=== PATIENT | male | born 1995 | race Caucasian/White ===

== ENCOUNTER 2017-01-28 09:35 | Emergency (ER) | payer OTHER ==
[2017-01-28] MEDS ORDERED: XYLOCAINE 2% INFILTRATI ONE (11:33)
[2017-01-28] MEDS ORDERED: BOOSTRIX IM ONE (11:33)
--- NOTE | 2017-01-28 11:35 | Emergency Department Report ---
ED Lower Extremity HPI - General Chief Complaint: Extremity Injury, Lower Stated Complaint: RT TOE INJURY Time Seen by Provider: 01/28/17 11:12 Source: patient Mode of arrival: Ambulatory Limitations: No Limitations - History of Present Illness Complaint: other (Right great toe ) Onset/Timin -: Sudden, days(s) Injury: Foot: Right Type of Injury: blunt Severity: moderate Severity scale (0 -10): 4 Improves With: nothing Worsens With: movement, palpation Context: direct blow Associated Symptoms: swelling, tingling, ambulatory, other (weight bearing ) - Related Data Previous Rx's Medication Instructions Recorded Last Taken Type Cephalexin [Keflex] 500 mg PO TID #30 capsule 01/28/17 Unknown Rx traMADol [Ultram 50 MG tab] 50 mg PO Q6HR PRN #15 tablet 01/28/17 Unknown Rx Allergies Allergy/AdvReac Type Severity Reaction Status Date / Time No Known Allergies Allergy Verified 01/28/17 10:12 ED Review of Systems ROS: Stated complaint: RT TOE INJURY Other details as noted in HPI Constitutional: denies: chills, fever Eyes: denies: eye pain, eye discharge, vision change ENT: denies: ear pain, throat pain Respiratory: denies: cough, shortness of breath, wheezing Cardiovascular: denies: chest pain, palpitations Endocrine: no symptoms reported Gastrointestinal: denies: abdominal pain, nausea, diarrhea Genitourinary: denies: urgency, dysuria Musculoskeletal: other (right great toe pain ) Skin: denies: rash, lesions Neurological: denies: headache, weakness, paresthesias Psychiatric: denies: anxiety, depression Hematological/Lymphatic: denies: easy bleeding, easy bruising ED Past Medical Hx - Past Medical History Previous Medical History?: No - Surgical History Past Surgical History?: Yes Additional Surgical History: L elbow - Social History Smoking Status: Current Every Day Smoker Substance Use Type: None - Medications Home Medications: Home Medications Medication Instructions Recorded Confirmed Last Taken Type Cephalexin [Keflex] 500 mg PO TID #30 capsule 01/28/17 Unknown Rx traMADol [Ultram 50 MG tab] 50 mg PO Q6HR PRN #15 tablet 01/28/17 Unknown Rx ED Physical Exam - General Limitations: No Limitations General appearance: alert, in no apparent distress - Head Head exam: Present: atraumatic, normocephalic - Eye Eye exam: Present: normal appearance - ENT ENT exam: Present: mucous membranes moist - Neck Neck exam: Present: normal inspection - Respiratory Respiratory exam: Present: normal lung sounds bilaterally. Absent: respiratory distress - Cardiovascular Cardiovascular Exam: Present: regular rate, normal rhythm. Absent: systolic murmur, diastolic murmur, rubs, gallop - GI/Abdominal GI/Abdominal exam: Present: soft, normal bowel sounds - Rectal Rectal exam: Present: deferred - Expanded Lower Extremity Exam Right Hip exam: Present: normal inspection Upper Leg exam: Present: normal inspection Knee exam: Present: normal inspection Lower Leg exam: Present: normal inspection Ankle exam: Present: normal inspection Foot/Toe exam: Present: tenderness, swelling, ecchymosis, erythema, subungual hematoma. Absent: deformity, crepidus, dislocation, amputation, puncture wound , foreign body, calcaneal tenderness, tenderness at base of 5th metatarsal, nail avulsion Neuro vascular tendon exam: Present: no vascular compromise. Absent: pulse deficit, abnormal cap refill, motor deficit, sensory deficit, tendon deficit, extremity cold to touch, pallor, abnormal 2-point discrimination, decreased fine /light touch, foot drop, peroneal nerve deficit, significant pain with passive ROM of distal joint Gait: Positive: observed and limited by pain - Back Exam Back exam: Present: normal inspection, full ROM. Absent: tenderness, CVA tenderness (R), CVA tenderness (L), muscle spasm, paraspinal tenderness, vertebral tenderness - Neurological Exam Neurological exam: Present: alert, oriented X3, CN II-XII intact, reflexes normal. Absent: motor sensory deficit - Psychiatric Psychiatric exam: Present: normal affect, normal mood - Skin Skin exam: Present: warm, dry, intact. Absent: rash, cyanosis, erythema, abrasion, ecchymosis ED Course Vital Signs 01/28/17 01/28/17 10:13 11:56 Temperature 99.0 F 98.5 F Pulse Rate 68 66 Respiratory 18 18 Rate Blood Pressure 118/76 Blood Pressure 124/80 [Right] O2 Sat by Pulse 100 99 Oximetry - I & D Right Dorsal Toe Site: right great toed subungual Hematoma Blade Size: 10 I & D Procedure: betadine prep Progress: pt with subungual hematoma right great toe , toe cleaned with betabdine solution , anethesia wiht 1% lidocaine, cautery pen drainage bloody output minimal allmount, 10 blade to nail bed toe irrigated with ns x 20 cc, nail bed blunt probed, pt advises pressure relieved to 0/10 , gauze dressing applied , pt given wound care instructions pt verabalized understanding of same. pt tolerated procedure with minimal distress. 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 pt ambulatory gait steady without gait disturbance at this time. Critical care attestation.: If time is entered above; I have spent that time in minutes in the direct care of this critically ill patient, excluding procedure time. ED Disposition Clinical Impression: Hematoma, subungual, great toe, right Qualifiers: Encounter type: initial encounter Qualified Code(s): S90.211A - Contusion of right great toe with damage to nail, initial encounter Sprain of foot, right Qualifiers: Encounter type: initial encounter Qualified Code(s): S93.601A - Unspecified sprain of right foot, initial encounter Disposition: DC-01 TO HOME OR SELFCARE Is pt being admited?: No Does the pt Need Aspirin: No Condition: Good Instructions: Subungual Hematoma (ED), Foot Sprain (ED) Additional Instructions: follow up with your [employer] doctor as directed by your company/ employer Prescriptions: Cephalexin [Keflex] 500 mg PO TID #30 capsule traMADol [Ultram 50 MG tab] 50 mg PO Q6HR PRN #15 tablet PRN Reason: Pain Referrals: PRIMARY CARE,MD [Primary Care Provider] - 3-5 Days Forms: Work/School Release Form(ED) Time of Disposition: 12:43
--- NOTE | 2017-01-28 11:38 | XRay Report ---
Right first toe: Injury/pain. There is some question concerning slight swelling of the soft tissues. There is no foreign body, laceration, fracture, or dislocation. The bones are well-mineralized and the joints are preserved. An AP view to include the entire foot is otherwise unremarkable. Impression: Probable soft tissue swelling.
--- NOTE | 2017-01-28 11:39 | XRay Report ---
Right foot 2 views: History: Injury to right foot. Findings: No articular abnormality. No fracture. No periosteal reaction or lytic lesion. Impression: Essentially negative right foot.
[2017-01-28] MEDS ORDERED: XYLOCAINE 1% MPF 5 mL INFILTRATI ONE (11:41)
[2017-01-28 11:57] VITALS: BP 124/80
== END 2017-01-28 12:49 | disposition home or self-care (01) ==
LOC: ED 09:35
DX: S93.601A Unspecified sprain of right foot, initial encounter (principal); S90.211A Contusion of right great toe with damage to nail, initial encounter; F17.200 Nicotine dependence, unspecified, uncomplicated; X58.XXXA Exposure to other specified factors, initial encounter; Y93.89 Activity, other specified; Y99.8 Other external cause status; Y92.89 Other specified places as the place of occurrence of the external cause
CPT/HCPCS: 90471; 90715

== ENCOUNTER 2019-03-03 11:06 | Emergency (ER) | payer SELFPAY ==
[2019-03-03 11:15] VITALS: BP 118/68
[2019-03-03 11:47] LABS: Hematocrit 49.1 % (35.5-45.6); Hemoglobin 16.8 gm/dl (11.8-15.2); Mean Corpuscular HGB Conc 34 % (32-34); Mean Corpuscular Volume 93 fl (84-94); Platelet Count 291 K/mm3 (140-440); Red Cell Distribution Width 13.2 % (13.2-15.2)
[2019-03-03 11:50] LABS: Bilirubin,Urine NEG (Negative); Blood,Urine NEG (Negative); Color,Urine Yellow (Yellow); Mucus,Urine FEW /HPF; Protein,Urine <15 mg/dL mg/dL (Negative); Urobilinogen,Urine < 2.0 mg/dL (<2.0)
[2019-03-03 12:09] LABS: Alanine Aminotransferase 14 units/L (7-56); Albumin 4.4 g/dL (3.9-5); BUN/Creatinine Ratio 8; Blood Urea Nitrogen 8 mg/dL (9-20); Calcium 9.2 mg/dL (8.4-10.2); Hemolysis Index 10
--- NOTE | 2019-03-03 12:26 | Emergency Department Report ---
ED Abdominal Pain HPI - General Chief Complaint: Abdominal Pain Stated Complaint: STOMACH PAIN/ABD PAIN Time Seen by Provider: 03/03/19 12:18 Source: patient Mode of arrival: Ambulatory Limitations: No Limitations - History of Present Illness Initial Comments: Radha is a young healthy 23-year-old male who presents with left lower quadrant suprapubic abdominal pain for the past 2 days. 2 days ago he woke up with stiffness pain pain is worse when he stretches. He does recall playing basketball the day before. Denies fever. Denies vomiting. Denies diarrhea. No pain in the genitals. Mild stiff pain. 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 MD Complaint: abdominal pain -: Gradual, days(s) (2) Location: LLQ, suprapubic Severity: moderate Quality: dull Worsens With: movement Associated Symptoms: denies other symptoms - Related Data Previous Rx's Medication Instructions Recorded Last Taken Type Cephalexin [Keflex] 500 mg PO TID #30 capsule 01/28/17 Unknown Rx traMADol [Ultram 50 MG tab] 50 mg PO Q6HR PRN #15 tablet 01/28/17 Unknown Rx Ibuprofen [Motrin 800 MG tab] 800 mg PO Q8HR PRN #10 tablet 03/03/19 Unknown Rx cephALEXin [Keflex] 500 mg PO QID 7 Days #28 capsule 03/03/19 Unknown Rx Allergies Allergy/AdvReac Type Severity Reaction Status Date / Time No Known Allergies Allergy Verified 01/28/17 10:12 ED Review of Systems ROS: Stated complaint: STOMACH PAIN/ABD PAIN Other details as noted in HPI Comment: All other systems reviewed and negative Constitutional: denies: fever, malaise Gastrointestinal: denies: nausea, vomiting, diarrhea ED Past Medical Hx - Past Medical History Previous Medical History?: No - Surgical History Past Surgical History?: Yes Additional Surgical History: R elbow sx 2014 - Social History Smoking Status: Never Smoker Substance Use Type: None - Medications Home Medications: Home Medications Medication Instructions Recorded Confirmed Last Taken Type Cephalexin [Keflex] 500 mg PO TID #30 capsule 01/28/17 Unknown Rx traMADol [Ultram 50 MG tab] 50 mg PO Q6HR PRN #15 tablet 01/28/17 Unknown Rx Ibuprofen [Motrin 800 MG tab] 800 mg PO Q8HR PRN #10 tablet 03/03/19 Unknown Rx cephALEXin [Keflex] 500 mg PO QID 7 Days #28 capsule 03/03/19 Unknown Rx ED Physical Exam - General Limitations: No Limitations General appearance: alert, in no apparent distress - Head Head exam: Present: atraumatic, normocephalic - Eye Eye exam: Present: normal appearance - ENT ENT exam: Present: mucous membranes moist - Neck Neck exam: Present: normal inspection, full ROM - Respiratory Respiratory exam: Present: normal lung sounds bilaterally. Absent: respiratory distress, wheezes, rales, rhonchi - Cardiovascular Cardiovascular Exam: Present: regular rate, normal rhythm. Absent: normal heart sounds, systolic murmur, diastolic murmur, rubs, gallop - GI/Abdominal GI/Abdominal exam: Present: soft, normal bowel sounds. Absent: distended, tenderness, guarding, rebound - Rectal Rectal exam: Present: deferred - Extremities Exam Extremities exam: Present: normal inspection - Back Exam Back exam: Present: normal inspection - Neurological Exam Neurological exam: Present: alert, oriented X3 - Psychiatric Psychiatric exam: Present: normal affect, normal mood - Skin Skin exam: Present: warm, dry, intact, normal color. Absent: rash ED Course Vital Signs 03/03/19 11:08 Temperature 97.9 F Pulse Rate 72 Respiratory 18 Rate Blood Pressure 118/68 O2 Sat by Pulse 97 Oximetry ED Medical Decision Making - Lab Data Result diagrams: 03/03/19 11:28 03/03/19 11:28 Laboratory Results - last 24 hr 03/03/19 03/03/19 03/03/19 11:28 11:28 Unknown WBC 5.8 RBC 5.30 H Hgb 16.8 H Hct 49.1 H MCV 93 MCH 32 MCHC 34 RDW 13.2 Plt Count 291 [place] % (Auto) Instrument Inspector Sodium 142 Potassium 4.1 Chloride 103.1 Carbon Dioxide 31 H Anion Gap 12 BUN 8 L Creatinine 1.0 Estimated GFR > 60 BUN/Creatinine Ratio 8 Glucose 98 Calcium 9.2 Total Bilirubin 0.30 AST 19 ALT 14 Alkaline Phosphatase 84 Total Protein 7.8 Albumin 4.4 Albumin/Globulin Ratio 1.3 Urine Color Yellow Urine Turbidity Slightly-cloudy Urine pH 6.0 Ur Specific Sabael 1.013 Urine Protein <15 mg/dl Urine Glucose (UA) Neg Urine Ketones Neg Urine Blood Neg Urine Nitrite Neg Urine Bilirubin Neg Urine Urobilinogen < 2.0 Ur Leukocyte Esterase Lg Urine WBC (Auto) 105.0 H Urine RBC (Auto) 5.0 Urine Mucus Few Urine Yeast (Budding) 3+ - Medical Decision Making No signs of peritonitis. There are signs of UTI. Prescribed cephalexin. Discharged home. Critical care attestation.: If time is entered above; I have spent that time in minutes in the direct care of this critically ill patient, excluding procedure time. ED Disposition Clinical Impression: Abdominal wall strain, UTI (urinary tract infection) Disposition: TO HOME OR SELFCARE Is pt being admited?: No Does the pt Need Aspirin: No Condition: Stable Instructions: Muscle Strain (ED), Urinary Tract Infection in Men (ED) Prescriptions: cephALEXin [Keflex] 500 mg PO QID 7 Days #28 capsule Ibuprofen [Motrin 800 MG tab] 800 mg PO Q8HR PRN #10 tablet PRN Reason: pain Referrals: ELISSA ALFARO MD [Primary Care Provider] - 3-5 Days
[2019-03-03 14:06] LABS: Band Neutrophils # (Manual) 0.1 K/mm3; Basophils % (Manual) 0 % (0.0-1.8); Total Cells Counted 100
[2019-03-03 14:07] LABS: Platelet Estimate Consistent w Auto; RBC Morphology Normal
== END 2019-03-03 12:35 | disposition home or self-care (01) ==
LOC: ED 11:06
DX: N39.0 Urinary tract infection, site not specified (principal)
CPT/HCPCS: 36415; 80053; 81001; 85007; 85025

== ENCOUNTER 2019-04-21 11:01 | Emergency (ER) | payer SELFPAY ==
[2019-04-21 11:11] VITALS: BP 114/71
--- NOTE | 2019-04-21 11:55 | Emergency Department Report ---
Chief Complaint: Dental/Oral Stated Complaint: TOOTHACHE/HEADACHE Time Seen by Provider: 04/21/19 11:54 - HPI History of Present Illness: Mr. Cervantes is a healthy 24-year-old male who has pain from an impacted wisdom tooth. He has been under the care of a dentist. Medical screening exam performed and completed. No evidence of acute emergent condition which needs further treatment or evaluation. - Exam Vital Signs: Vital Signs 04/21/19 11:08 Temperature 98.2 F Pulse Rate 64 Respiratory 16 Rate Blood Pressure 114/71 O2 Sat by Pulse 99 Oximetry MSE screening note: Focused history and physical exam performed. Due to findings the following was ordered: ED Disposition for MSE Clinical Impression: Pain, dental Disposition: Z-07 MED SCREENING EXAM-LEFT Is pt being admited?: No Does the pt Need Aspirin: No Condition: Stable
== END 2019-04-21 12:32 | disposition left against medical advice (07) ==
LOC: ED 11:01
DX: K08.89 Other specified disorders of teeth and supporting structures (principal); Z53.21 Procedure and treatment not carried out due to patient leaving prior to being seen by health care provider

== ENCOUNTER 2020-08-31 12:09 | Emergency (ER) | payer SELFPAY ==
[2020-08-31 12:18] VITALS: BP 116/68
[2020-08-31] MEDS ORDERED: LIDOCAINE-MPF (1%) 10 MG/1 ML VIAL 5 ML INFILTRATI ONE (14:11)
--- NOTE | 2020-08-31 14:14 | Emergency Department Report ---
ED Male HPI - General Chief complaint: Abdominal Pain Stated complaint: STOMACH PAIN Source: patient Mode of arrival: Ambulatory Limitations: No Limitations - History of Present Illness Initial comments: 25-year-old -[place] male presents to the emergency room with a 2 to 3- day history of a bump to his left pubis area that is painful. Patient also complains of penile discharge for 2 days. But not constant. He also has some dysuria. Denies any testicular pain. Does admit to having unprotected intercourse. No past medical history. Patient has a history of a right elbow surgery in 2014. Currently has no known drug allergies. Does not take any medications on a daily basis. Patient is up-to-date on all vaccines. MD Complaint: penile discharge, dysuria, groin pain Onset/Timin -: days(s) Location: right inguinal region Severity scale (0 -10): 8 Quality: sharp Consistency: constant Improves with: none Worsens with: movement discharge - Related Data Sexually active: Yes Previous Rx's Medication Instructions Recorded Last Taken Type cephALEXin [Keflex] 500 mg PO TID #30 capsule 01/28/17 Unknown Rx traMADoL [Ultram 50 MG tab] 50 mg PO Q6HR PRN #15 tablet 01/28/17 Unknown Rx Ibuprofen [Motrin 800 MG tab] 800 mg PO Q8HR PRN #10 tablet 03/03/19 Unknown Rx cephALEXin [Keflex] 500 mg PO QID 7 Days #28 capsule 03/03/19 Unknown Rx Azithromycin 1,000 mg PO ONCE #2 tablet 08/31/20 Unknown Rx Allergies Allergy/AdvReac Type Severity Reaction Status Date / Time No Known Allergies Allergy Verified 08/31/20 12:16 ED Review of Systems ROS: Stated complaint: STOMACH PAIN Other details as noted in HPI Comment: All other systems reviewed and negative ED Past Medical Hx - Past Medical History Previous Medical History?: No - Surgical History Additional Surgical History: R elbow sx 2015 - Social History Smoking Status: Current Every Day Smoker Substance Use Type: None - Medications Home Medications: Home Medications Medication Instructions Recorded Confirmed Last Taken Type cephALEXin [Keflex] 500 mg PO TID #30 capsule 01/28/17 Unknown Rx traMADoL [Ultram 50 MG tab] 50 mg PO Q6HR PRN #15 tablet 01/28/17 Unknown Rx Ibuprofen [Motrin 800 MG tab] 800 mg PO Q8HR PRN #10 tablet 03/03/19 Unknown Rx cephALEXin [Keflex] 500 mg PO QID 7 Days #28 capsule 03/03/19 Unknown Rx Azithromycin 1,000 mg PO ONCE #2 tablet 08/31/20 Unknown Rx ED Physical Exam - General Limitations: No Limitations General appearance: alert, in no apparent distress - Head Head exam: Present: atraumatic, normocephalic - Eye Eye exam: Present: normal appearance - ENT ENT exam: Present: mucous membranes moist - Respiratory Respiratory exam: Absent: accessory muscle use - exam: Absent: testicular tenderness, urethral discharge, scrotal swelling External exam: Present: normal external exam - Extremities Exam Extremities exam: Present: normal inspection - Back Exam Back exam: Present: normal inspection - Neurological Exam Neurological exam: Present: alert, oriented X3, normal gait - Psychiatric Psychiatric exam: Present: normal affect, normal mood - Skin Skin exam: Present: warm, dry, intact, normal color. Absent: rash ED Course Vital Signs 08/31/20 12:17 Temperature 98.2 F Pulse Rate 78 Respiratory 20 Rate Blood Pressure 116/68 O2 Sat by Pulse 99 Oximetry ED Medical Decision Making - Medical Decision Making 25-year-old -[place] male presents to the emergency room with a 2 to 3- day history of a bump to his left pubis area that is painful. Patient also complains of penile discharge for 2 days. But not constant. He also has some dysuria. Denies any testicular pain. Does admit to having unprotected intercourse. No past medical history. Patient has a history of a right elbow surgery in 2015. Currently has no known drug allergies. Does not take any medications on a daily basis. Patient is up-to-date on all vaccines. Critical care attestation.: If time is entered above; I have spent that time in minutes in the direct care of this critically ill patient, excluding procedure time. ED Disposition Clinical Impression: Concern about STD in male without diagnosis, Abscess Disposition: TO HOME OR SELFCARE Is pt being admited?: No Does the pt Need Aspirin: No Condition: Stable Instructions: Skin Abscess, [id number] Additional Instructions: Complete antibiotics as prescribed. you can use ibuprofen or Tylenol for pain management. I recommend following up at the health department for complete STD evaluation. Prescriptions: Azithromycin 1,000 mg PO ONCE #2 tablet Referrals: [facility] [Outside] - 3-5 Days Forms: Work/School Release Form(ED)
== END 2020-08-31 14:55 | disposition home or self-care (01) ==
LOC: ED 12:09
DX: L02.214 Cutaneous abscess of groin (principal); Z20.2 Contact with and (suspected) exposure to infections with a predominantly sexual mode of transmission; F17.200 Nicotine dependence, unspecified, uncomplicated; Z79.899 Other long term (current) drug therapy
CPT/HCPCS: 96372; 99281; J0696